=== PATIENT | female | born 1980 | race Caucasian/White ===

== ENCOUNTER 2021-09-29 05:31 | Emergency (ER) | payer OTHER, SELFPAY ==
[2021-09-29 05:37] VITALS: BP 132/79; PULSE 103; RESP 20; TEMP 36.7; O2SAT 98
--- NOTE | 2021-09-29 05:59 | PC.NURSE ---
YOUNG Bell at bedside
[2021-09-29] MEDS: LIDOCAINE HCL 1% PF 30 ML VIAL (06:35)
[2021-09-29] MEDS: cefTRIAXone 1 GM VIAL 0.5 GM IM (06:35)
[2021-09-29 06:45] LABS: Appearance Urine Slightly Cloudy (Clear); Bilirubin Urine 1+ (Negative); Color Urine Yellow (Yellow); Glucose Urine UA Negative (Negative); Ketones Urine Negative (Negative); Leukocyte Esterase Ur Negative LEU/UL (Negative); Nitrate Urine Negative (Negative); Protein Urine Trace mg/dL (Negative); Specific Grav Ur >= 1.030 (1.001-1.035); Urobilinogen Urine 0.2 mg/dL (<2.0); pH Urine 5.5 (5.0-9.0)
[2021-09-29 06:54] LABS: Add Urine Microscopic? YES; Blood Urine Trace-Intact (Negative)
--- NOTE | 2021-09-29 06:58 | ED.GENADULT ---
HPI - General Adult General Chief complaint: Animal Bite Stated complaint: spider bite - bilateral legs Time Seen by Provider: 09/29/21 05:40 History of Present Illness HPI narrative: Patient is a 40-year-old female who presents ER with concern of infection around her buttock. Patient reports 2 weeks ago she was seen at [facility] because she had 1 spot beneath each buttock at the skin fold of the leg that she felt was infected. She was on Bactrim which she is finished. She feels like there is still pain there and that they have not fully healed. Denies drainage. No fevers or chills or sweats. Patient also reports that she had a new sexual partner 4 weeks ago and 1 week afterward she started having itching and burning around her vagina. She has not looked down there to tell if she has any lesions or not. She is unsure if she has any vaginal discharge. She does endorse some dysuria but thought maybe she had a yeast infection from her antibiotic usage. Related Data Allergies Allergy/AdvReac Type Severity Reaction Status Date / Time codeine AdvReac Unknown NAUSEA Verified 09/29/21 05:44 Review of Systems Review of Systems: All systems reviewed & are unremarkable except as noted in HPI and below Constitutional: Constitutional: Denies chills and Denies fever(s) Gastrointestinal: Gastrointestinal: Denies abdominal pain, Denies nausea and Denies vomiting Genitourinary: Genitourinary: Denies abnormal vaginal bleeding, Reports nocturia, Reports genital lesions, Reports dysuria and Denies flank pain Integumentary/Breasts: Skin/Breast: Reports pruritus, Reports erythema, Denies rash and Reports skin ulcer PMFSH Family History Family History (Updated 02/24/19 @ 10:26 by Sis Hollins, RT(R)) Other Arthritis Cancer Social History Social History (Updated 02/24/19 @ 10:25 by Sis Hollins, RT(R)) Smoking status: Current every day smoker Alcohol intake: never Gender identity (if verbalized by the patient): Female Exam Narrative: GENERAL: Well-appearing, well-nourished, and in no acute distress. HEAD: Normocephalic, atraumatic. CHEST: Clear to auscultation. No respiratory distress. HEART: Regular rate and rhythm. Normal peripheral pulses. ABDOMEN: Soft, nontender, nondistended. : External genitalia with ulcerated lesion to bilateral aspects of the introitus with large white plaque-like ulceration over the labia minora on the right side. Mild vaginal discharge with normal-appearing cervix. No CMT. EXTREMITIES: Normal range of motion. No edema. SKIN: Warm, dry. Where the buttock meets the thigh on bilateral legs there are 1.5 cm diameter red indurated infections. On the right side it is already open and not draining. The left side does have a pustule present. NEURO: Alert and oriented x3. Course Course Emergency Course: Patient informed of exam findings and treatment plan. She did allow I&D of the gluteal abscess on the left side but not the right. We will treat patient skin infection and possible STI exposure with doxycycline. She is received IM ceftriaxone. We will also place her on oral Valtrex. We will give her gynecology follow-up. Vital Signs Vital signs: Vital Signs Temperature 98.1 F 09/29/21 05:37 Pulse Rate 103 H 09/29/21 05:37 Respiratory Rate 09/29/21 05:37 Blood Pressure 132/79 09/29/21 05:37 Pulse Oximetry 98 09/29/21 05:37 Oxygen Delivery Room Air 09/29/21 05:37 Temperature 98.1 F 09/29/21 05:37 Pulse Rate 103 H 09/29/21 05:37 Respiratory Rate 20 09/29/21 05:37 Blood Pressure 132/79 09/29/21 05:37 Pulse Oximetry 98 09/29/21 05:37 Oxygen Delivery Room Air 09/29/21 05:37 Medical Decision Making Vital Signs Vital Signs: Vital Signs Temperature 98.1 F 09/29/21 05:37 Pulse Rate 103 H 09/29/21 05:37 Respiratory Rate 20 09/29/21 05:37 Blood Pressure 132/79 09/29/21 05:37 Pulse Oximetry 98 09/29/21 05:37 Oxygen Deli
[2021-09-29 07:07] LABS: Bacteria Urine Trace /hpf; Mucus Urine Few /lpf; Squamous Epithelial Cell Urine Many /hpf (Few); WBC Urine 21-30 /hpf
== END 2021-09-29 07:26 | disposition home or self-care (01) ==
PROVIDERS: Emergency Provider Emergency Medicine
DX: L02.31 Cutaneous abscess of buttock (principal); N76.5 Ulceration of vagina; A59.8 Trichomoniasis of other sites; F17.200 Nicotine dependence, unspecified, uncomplicated
CPT/HCPCS: 81001; 87070; 87086; 87491; 87591; 87808; 96372; 99283; J0696